=== PATIENT | male | born 1990 | race Caucasian/White ===

== ENCOUNTER 2021-07-16 12:43 | Outpatient (REF) | payer BC, SELFPAY ==
[2021-07-16 17:30] LABS: Anion Gap 6.6 mmol/L (3-11); BUN 19 mg/dL (7-18); CO2 28.4 mmol/L (21.0-32.0); CREATININE 1.1 mg/dL (0.70-1.30); Calcium 9.5 mg/dL (8.5-10.1); Chloride 105 mmol/L (98-107); FREE T4 0.88 ng/dL (0.76-1.46); Glucose 92 mg/dL (74-106); Potassium 4.8 mmol/L (3.5-5.1); Sodium 140 mmol/L (136-145); TSH 5.47 uIU/mL (0.36-3.74)
[2021-07-16 17:49] LABS: Calculated LDL 95 mg/dL (<100); Cholesterol 162 mg/dL (<200); HDL Cholesterol 46 mg/dL (40-60); Triglyceride 106 mg/dL (<150)
== END 2021-07-16 12:44 | disposition home or self-care (01) ==
LOC: NCHCN 12:43
PROVIDERS: Visit Provider Physician Assistant
DX: Z00.00 Encounter for general adult medical examination without abnormal findings (principal); R53.83 Other fatigue
CPT/HCPCS: 80048; 80061; 84439; 84443

== ENCOUNTER 2021-12-25 18:22 | Outpatient (REF) | payer BC, SELFPAY ==
[2021-12-25 16:05] LABS: FREE T4 0.85 ng/dL (0.76-1.46); TSH 4.73 uIU/mL (0.36-3.74)
== END 2021-12-25 18:23 | disposition home or self-care (01) ==
LOC: NCHCN 18:22
PROVIDERS: Visit Provider Physician Assistant
DX: E07.81 Sick-euthyroid syndrome (principal)
CPT/HCPCS: 84439; 84443